=== PATIENT | female | born 1990 | race Caucasian/White ===

== ENCOUNTER 2017-04-13 22:32 | Inpatient (IN) | payer BC ==
[~2017-04-13] VITALS: Ht 157.5 cm; Wt 93.6 kg
[~2017-04-13 22:32] MED LIST: LEXAPRO 10MG10 MG; MOTRIN 600600 MG/TAB PO; PERCOCET 325 MG1 TA2 PO; TYLENOL 325MG325 MG
[2017-04-13 23:00] VITALS: BP 131/88; PULSE 96; TEMP 98
[2017-04-13 23:15] VITALS: BP 135/79; PULSE 100
[2017-04-13 23:42] LABS: BASO # 0.1 (0.0-0.2); BASO % 0.5 % (0.0-2.0); EOS % 0.4 % (0-4.0); GRAN % 69.9 % (42.2-75.2); HEMATOCRIT 30.1 % (37.0-47.0); LYMPH # 2.1 (1.2-3.4); LYMPH % 21.3 % (20.0-51.0); MEAN CELL VOLUME 83 fl (80.0-100.0); MEAN CORPUSCULAR HEMOGLOBIN 28 pg (27.0-31.0); MEAN CORPUSCULAR HGB CONC 33 g/dl (33.0-37.0); MEAN PLATELET VOLUME 11.3 fl (7.4-10.4); MONO # 0.8 (0.1-0.6); MONO % 7.5 % (1.7-9.3); PLATELET COUNT 294 K/mm3 (130-400); RED BLOOD COUNT 3.62 M/mm3 (4.10-5.30)
[2017-04-14] VITALS (41 sets, daily range): BP systolic 109–148; BP diastolic 56–98; PULSE 78–104; TEMP 97.1–98.7
[2017-04-14] MEDS ORDERED: SUDAFED30 MG PO (08:01)
[2017-04-14] MEDS ORDERED: TYLENOL 325MG325 MG PO (08:02)
[2017-04-15 09:00] VITALS: BP 134/82; PULSE 84; TEMP 98.1
[2017-04-15] MEDS ORDERED: IBU800 M1 PO (14:21)
[2017-04-15] MEDS ORDERED: PERCOCET 325 MG1 TA2 PO (14:21)
[2017-04-15 18:45] VITALS: BP 128/90; PULSE 79; TEMP 98.3
[2017-04-16 07:55] VITALS: BP 136/84; PULSE 77; TEMP 97.6
== END 2017-04-16 12:15 | disposition home or self-care (01) | DRG 775 ==
LOC: OB 22:32 → LDR 22:32 → OB 04-14 09:51 → LDR 04-14 13:29 → OB 04-16 12:15
PROVIDERS: Obstetrics & Gynecology
PROC: 10E0XZZ Delivery of Products of Conception, External Approach (ICD-10-PCS; principal; 2017-04-14)
PROC: 0KQM0ZZ Repair Perineum Muscle, Open Approach (ICD-10-PCS; 2017-04-14)
DX: O70.1 Second degree perineal laceration during delivery (principal); Z37.0 Single live birth; Z3A.39 39 weeks gestation of pregnancy
CPT/HCPCS: J2590; J7120

== ENCOUNTER 2017-06-14 09:42 | Emergency (ER) | payer BC, OTHER ==
[~2017-06-14] VITALS: Ht 157.5 cm; Wt 85.9 kg
[~2017-06-14 09:42] MED LIST changes: +IBU800 M1 PO; +SUDAFED30 MG PO; +TYLENOL 325MG325 MG PO
[2017-06-14 09:57] VITALS: BP 137/84; PULSE 66; TEMP 99.2
[2017-06-14] MEDS ORDERED: NEXPLANON68 MG ID (10:01)
[2017-06-14] MEDS ORDERED: CEPHALEXIN500 M1 PO (10:40)
== END 2017-06-14 10:56 | disposition home or self-care (01) ==
LOC: COL.ER 09:42
DX: N61.0 Mastitis without abscess (principal); Z90.89 Acquired absence of other organs

== ENCOUNTER 2017-08-02 08:25 | Day surgery (SDC) | payer OTHER ==
[2017-08-02] VITALS (8 sets, daily range): BP systolic 120–140; BP diastolic 63–90; PULSE 65–88; TEMP 98.3–99.3
[~2017-08-02] VITALS: Ht 157.5 cm; Wt 85.3 kg
[~2017-08-02 08:25] MED LIST changes: +CEPHALEXIN500 M1 PO; +NEXPLANON68 MG ID
[2017-08-02] MEDS ORDERED: SUDAFED30 MG PO (09:42)
[2017-08-02] MEDS ORDERED: NORCO 325 MG-51 TAB PO ×2 (09:43→11:39)
[2017-08-02] MEDS ORDERED: FLONASEALLERGY NS (09:45)
== END 2017-08-02 15:24 | disposition home or self-care (01) ==
LOC: SDCO 08:25
DX: K80.10 Calculus of gallbladder with chronic cholecystitis without obstruction (principal)
CPT/HCPCS: A4216; J0690; J1100; J1885; J2405; J2704; J2710; J2765; J3010; J7120; Q9967

== ENCOUNTER → 2020-04-25 | Outpatient (CLI) | payer OTHER ==
[~2020-04-25] MED LIST changes: +FLONASEALLERGY NS; +NORCO 325 MG-51 TAB PO
== END ==
LOC: COL.RAD 14:30
DX: R51.9 Headache, unspecified (principal)
CPT/HCPCS: Q9967

== ENCOUNTER → 2020-05-22 | Outpatient (CLI) | payer OTHER | LOC: COL.RAD 12:06 | DX: M54.2 Cervicalgia (principal); R51.9 Headache, unspecified ==